=== PATIENT | male | born 1975 | race Two or more races ===

== ENCOUNTER 2022-09-26 12:19 | Emergency (ER) | payer OTHER ==
[2022-09-26 12:29] VITALS: RESP 20; TEMP 98.5; BMI 33.3
[2022-09-26] MEDS ORDERED: ACETAMINOPHEN 1000 MG/100 ML BAG IVPB ONE (13:11)
[2022-09-26] MEDS ORDERED: SODIUM CHLORIDE 0.9% 500 ML INFUS.BAG IV ONE (13:11)
[2022-09-26] MEDS ORDERED: LIDOCAINE 5% TOPICAL PATCH TP ONE (13:18)
[2022-09-26] MEDS ORDERED: METHOCARBAMOL 500 MG TABLET PO ONE (13:18)
[2022-09-26] MEDS ORDERED: METHOCARBAMOL 500 MG TABLET ONE (13:35)
[2022-09-26] MEDS ORDERED: ACETAMINOPHEN INJECTION 100 ML IVPB ONE (13:35)
[2022-09-26] MEDS ORDERED: LIDOCAINE 5% TOPICAL PATCH ONE (13:36)
[2022-09-26 14:13] LABS: BASO % 0.5 % (0-2.0); EOS % 2.8 % (0-4.5); HEMATOCRIT 29.7 % (35.4-49); HEMOGLOBIN 10.1 GM/dL (11.7-16.9); LYMPH % 22.9 % (8-40); MCH 28.2 pg (25.7-33.7); MCHC 33.9 g/dl (32.0-35.9); MEAN CELL VOLUME 83.4 fl (80-96); MEAN PLT VOLUME 10.8 fl (7.5-11.1); MONO % 5.8 % (3.8-10.2); PLATELET COUNT 180 10^3/uL (134-434); RBC 3.56 M/mm3 (4.00-5.60); WHITE BLOOD COUNT 7.8 K/mm3 (4.0-10.0)
[2022-09-26 14:32] LABS: POTASSIUM 4.3 mmol/L (3.5-5.1)
[2022-09-26 14:33] LABS: CALCIUM 9.4 mg/dL (8.5-10.1)
[2022-09-26 14:34] LABS: ALBUMIN 3.5 g/dl (3.4-5.0); BLOOD UREA NITROGEN 48.2 mg/dL (7-18)
[2022-09-26 14:37] LABS: CREATININE 2.8 mg/dL (0.55-1.3)
[2022-09-26 14:39] LABS: BILIRUBIN,TOTAL 0.1 mg/dL (0.2-1); TOT PROT 7.9 g/dl (6.4-8.2)
[2022-09-26 15:42] LABS: EPI CELLS 28 /uL (0-25.1); HYALINE CASTS 0 /uL (0-3.1); PH,URINE 5.5 (5.0-8.0); URINE APPEARANCE CLEAR; URINE BACTERIA 417 /uL (0-1359); URINE BILIRUBIN NEGATIVE (NEGATIVE); URINE COLOR YELLOW; URINE GLUCOSE (UA) NEGATIVE (NEGATIVE); URINE KETONE NEGATIVE (NEGATIVE); URINE LEUK ESTERASE TRACE (NEGATIVE); URINE NITRITE NEGATIVE (NEGATIVE); URINE PROTEIN 1+ (NEGATIVE); URINE RBC 23 /uL (0-23.9); URINE UROBILINOGEN 0.2 mg/dL (0.2-1.0); URINE WBC 27 /uL (0-25.8)
[2022-09-26 17:04] VITALS: BP 149/96; PULSE 106
[2022-09-26] MEDS ORDERED: LIDOCAINE PATCH REMOVAL MC SCH (22:00)
== END 2022-09-26 17:04 | disposition home or self-care (01) ==
LOC: JER 12:19
PROC: 3E033NZ Introduction of Analgesics, Hypnotics, Sedatives into Peripheral Vein, Percutaneous Approach (ICD-10-PCS; principal; 2022-09-26)
DX: M54.6 Pain in thoracic spine (principal); R10.9 Unspecified abdominal pain; M62.830 Muscle spasm of back; S39.012A Strain of muscle, fascia and tendon of lower back, initial encounter; X58.XXXA Exposure to other specified factors, initial encounter
CPT/HCPCS: 36415; 80053; 81003; 85025; 87086; 99284-25

== ENCOUNTER 2023-08-18 11:34 | Emergency (ER) | payer OTHER ==
[2023-08-18 12:05] VITALS: RESP 18; TEMP 98.5; BMI 33.0
[2023-08-18] MEDS ORDERED: amLODIPine BESYLATE 5 MG TABLET (FP) ONE (13:41)
[2023-08-18] MEDS ORDERED: ACETAMINOPHEN 500 MG TABLET (FP) ONE (13:42)
[2023-08-18] MEDS: ACETAMINOPHEN 500 MG TABLET (FP) PO ONE (13:44)
[2023-08-18] MEDS: amLODIPine BESYLATE 10 MG TABLET (FP) PO ONE (13:44)
[2023-08-18] MEDS: LOSARTAN 50MG/HCTZ 12.5MG 1 TAB PO ONE (15:06)
[2023-08-18 15:14] VITALS: BP 145/85; PULSE 107
== END 2023-08-18 15:22 | disposition home or self-care (01) ==
LOC: JER 11:34
DX: M71.21 Synovial cyst of popliteal space [Baker], right knee (principal); M25.561 Pain in right knee; I10 Essential (primary) hypertension; M25.461 Effusion, right knee; M79.671 Pain in right foot
CPT/HCPCS: 73562-TC-RT-FY; 93005; 93010; 93971-TC; 99285-25